=== PATIENT | female | born 1985 | race Caucasian/White ===

== ENCOUNTER 2025-03-19 12:07 | Day surgery (SDC) | payer OTHER ==
[2025-03-19] MEDS ORDERED: Depo-Medrol 40 MG/ML IM ONE (12:08)
[2025-03-19] MEDS ORDERED: LIDOCAINE HCL 1% AMPUL 5 ML IJ ONE (12:08)
[2025-03-19] MEDS ORDERED: Sodium Chloride 0.9(Preservative Free) 10 ML IJ ONE (12:08)
[2025-03-19] MEDS ORDERED: propofoL IV ONE (14:33)
[2025-03-19] MEDS ORDERED: MORPHINE SULFATE 2 MG INJ ONE (15:03)
[2025-03-19] MEDS ORDERED: Lactated Ringers 1,000 ML IV ONE (16:15)
--- NOTE | 2025-03-19 16:55 | XRAY ---
Indication: Lumbar TORRES. Intraoperative fluoroscopy provided for 10 seconds. 2 digital spot image submitted for interpretation demonstrates posterior needle tip projecting posterior to lumbosacral junction. Small amount of contrast injected for needle tip placement. Correlate with intraoperative findings/report.
--- NOTE | 2025-03-19 17:26 | XRAY ---
10 seconds of fluoroscopy used in surgery for a lumbar TORRES.
== END 2025-03-19 14:45 | disposition home or self-care (01) ==
LOC: SDC-PAIN 12:07
PROVIDERS: ATTEND Psychiatry & Neurology Pain Medicine
DX: M54.16 Radiculopathy, lumbar region (principal)
CPT/HCPCS: 72100; J2270; J2704; Q9966